=== PATIENT | male | born 1950 | race Caucasian/White ===

== ENCOUNTER → 2016-10-18 | Outpatient (CLI) | payer OTHER ==
--- NOTE | 2016-10-18 10:50 | CR ---
EXAMINATION: Left elbow HISTORY: Pain COMPARISON: None TECHNIQUE: 3 views FINDINGS/IMPRESSION: There is no acute osseous abnormality, dislocation, or fracture identified. Bon e mineralization and joint spaces appear normal. No soft tissue swelling.
== END ==
LOC: MW.CHORTHO 08:16
PROVIDERS: ATTEND Orthopaedic Surgery
DX: M25.522 Pain in left elbow (principal)
CPT/HCPCS: 73080-26-LT; 73080-LT

== ENCOUNTER 2016-11-07 07:56 | Day surgery (SDC) | payer OTHER ==
[~2016-11-07 07:56] MED LIST: Lactated Ringers 1,000 ML IV SCH; Lidocaine 2% 5 ML SDV ONE; Midazolam 1 MG/ML 2 ML SDV ONE; Ondansetron 4 MG/2 ML SDV ONE; Propofol 200 MG/20 ML SDV ONE; Rocuronium 10 MG/ML 10 ML Syringe ONE; ceFAZolin 2 GM in Premix Bag 1 BAG IV SCH; fentaNYL 250 MCG/5 ML SDV ONE
[2016-11-07] MEDS ORDERED: Acetaminophen/HYDROcodone 325-5 MG Tab PO PRN (08:00)
[2016-11-07] MEDS ORDERED: Metoprolol Succinate 25 MG Tab.ER PO ONE ×2 (09:03→09:20)
--- NOTE | 2016-11-07 09:03 | PCM.PREANE ---
Preanesthetic Assessment - Anesthesia/Transfusion/Family Hx Anesthesia History: Prior Anesthesia Without Reaction Family History of Anesthesia Reaction: No Transfusion History: No Prior Transfusion(s) - Review of Systems General: No Symptoms Pulmonary: No Symptoms Cardiovascular: No Symptoms Gastrointestinal: No symptoms Neurological: No Symptoms Other: Reports: None - Physical Assessment NPO Status Date: 11/06/16 NPO Status Time: 20:00 O2 Sat by Pulse Oximetry: 98 Respiratory Rate: 16 Vital Signs: Last Vital Signs Temp 36 C 11/07/16 08:10 Pulse 62 11/07/16 08:10 Resp 16 11/07/16 08:10 BP 125/67 11/07/16 08:10 Pulse Ox 98 11/07/16 08:10 Height: 1.78 m Weight: 95.254 kg ASA Class: 3 Mental Status: Alert & Oriented x3 Airway Class: Mallampati = 2 Dentition: Reports: Normal Dentition ROM/Head Extension: Full Lungs: Clear to auscultation Cardiovascular: Regular Rate - Allergies Allergies/Adverse Reactions: Allergies Allergy/AdvReac Type Severity Reaction Status Date / Time metronidazole [From Flagyl] Allergy Redness Verified 11/02/16 13:56 - Blood Blood Available: No - Anesthesia Plan Pre-Op Medication Ordered: Beta Hussain Beta Hussain: Metoprolol Med Last Dose Date: 11/06/16 (will redose in preop today) Med Last Dose Time: 07:00 - Acknowledgements Anesthesia Type Planned: General Anesthesia, MAC (GA or MAC --surgeon choice) Pt an Appropriate Candidate for the Planned Anesthesia: Yes Alternatives and Risks of Anesthesia Discussed w Pt/Guardian: Yes Pt/Guardian Understands and Agrees with Anesthesia Plan: Yes PreAnesthesia Questionnaire HEENT History: Reports: Other (see below) Other HEENT History: wears glasses Cardiovascular History: Reports: CAD, High cholesterol, Hypertension, Stents, Other (see below) (stents in 2007, nl stress test in Jul 2015, has continued Plavix till yest, stopped asa i wk ago. LD metopralol > 24 hr ago (will give in pre op area before surgery)) Musculoskeletal History: Reports: Osteoarthritis - Past Surgical History Head Surgeries/Procedures: Reports: None Cardiovascular Surgical History: Reports: Coronary artery stent GI Surgical History: Reports: Appendectomy, Hernia repair/other Other GI Surgeries/Procedures: hx appy and hernia repair Neurological Surgical History: Reports: Lumbar spine Other Neurological Surgeries/Procedures: hx back surgery Musculoskeletal Surgical History: Reports: Knee replacement Other Musculoskeletal Surgeries/Procedures:: hx rt knee replacement - SUBSTANCE USE Smoking Status *Q: Former Smoker Tobacco Use Within Last Twelve Months: No Recreational Drug Use History: No - HOME MEDS Home Medications: Home Meds Aspirin [[place] Aspirin] 81 mg PO DAILY 11/02/16 [History] Cholecalciferol (Vitamin D3) [Vitamin D3] 1,000 units PO DAILY 11/02/16 [History ] Clopidogrel [Plavix] 75 mg PO DAILY 11/02/16 [History] Ezetimibe [Zetia] 10 mg PO DAILY 11/02/16 [History] Metoprolol Succinate 25 mg PO DAILY 11/02/16 [History] Multivitamin/Iron/Folic Acid [Centrum Complete Multivit] 1 tab PO DAILY [History] [place]-3S/DHA/Epa/Fish Oil [[place]-3 Fish Oil 1,000 mg Sfgl] 1,000 mg PO DAILY [History] atorvaSTATin [Lipitor] 80 mg PO DAILY 11/02/16 [History] - CURRENT (IN HOUSE) MEDS Current Meds: Current Medications Acetaminophen/Hydrocodone Bitart ([place] 325-5 Mg) 1 - 2 tab PO Q4H PRN PRN Reason: Pain Lactated Ringer's (Ringers, Lactated) 1,000 mls @ 100 mls/hr IV ASDIRECTED [facility] Last Admin: 11/07/16 08:13 Dose: 100 mls/hr Cefazolin Sodium/Dextrose 2 gm (/ Premix) 50 mls @ 100 mls/hr IV ONCALL TIM Discontinued Medications Fentanyl (Sublimaze) Confirm Administered Dose 250 mcg .ROUTE .STK-MED ONE Stop: 11/07/16 07:37 Lidocaine (Xylocaine-Mpf 2%) Confirm Administered Dose 5 ml .ROUTE .STK-MED ONE Stop: 11/07/16 07:37 Midazolam HCl (Versed 1 Mg/Ml) Confirm Administered Dose 2 mg .ROUTE .STK-MED ONE Stop: 11/07/16 07:37 Ondansetron HCl (Zofran) Confirm Administered Dose 4 mg .ROUTE .STK-MED ONE Stop: 11/07/16 07:37 Propofol (Diprivan 20 Ml) Confirm Administered Dose 200 mg .ROUTE .STK-MED ONE Stop: 11/07/16 07:37 Rocuronium [place] (Zemuron) Confirm Administered Dose 100 mg .ROUTE .STK-MED ONE Stop: 11/07/16 07:37 Preanesthetic Assessment - ANESTHESIA/TRANSFUSION/FAMILY HX Family History of Anesthesia Reaction: No - PHYSICAL ASSESSMENT O2 Sat by Pulse Oximetry: 98 RR: 16 Vital Signs: Last Vital Signs Temp 36 C 11/07/16 08:10 Pulse 62 11/07/16 08:10 Resp 16 11/07/16 08:10 BP 125/67 11/07/16 08:10 Pulse Ox 98 11/07/16 08:10 Height: 1.78 m Weight: 95.254 kg - ALLERGIES Allergies/Adverse Reactions: Allergies Allergy/AdvReac Type Severity Reaction Status Date / Time metronidazole [From Flagyl] Allergy Redness Verified 11/02/16 13:56
[2016-11-07] MEDS ORDERED: Metoprolol Succinate 25 MG Tab.ER PO SCH (09:30)
[2016-11-07] MEDS ORDERED: Lidocaine 1% 50 ML MDV ONE (09:36)
[2016-11-07] MEDS ORDERED: Bupivacaine 0.25% 10 ML SDV ONE (09:36)
[2016-11-07] MEDS ORDERED: ceFAZolin 1 GM Vial ONE (09:51)
[2016-11-07] MEDS ORDERED: Sodium Chloride 0.9% 20 ML ONE (09:51)
--- NOTE | 2016-11-07 10:35 | PCM.OPNOTE ---
- General Post-Op/Procedure Note Date of Surgery/Procedure: 11/07/16 Operative Procedure(s): right ring finger A1 trevor release; left elbow lateral epicondyle cortisone injection Anesthesia Technique: MAC Primary Surgeon: Kassy Ruth Assistant Executive Housekeeper: Montse Avina Assistant Executive Housekeeper: Henok Spencer EBL in mLs: 5 Drain/Tube Comments:: Tourniquet time: 9 minutes Condition: Good
--- NOTE | 2016-11-07 10:47 | PCM.POSTAN ---
POST ANESTHESIA ASSESSMENT - MENTAL STATUS Mental Status: alert, oriented - RESPIRATORY Respiratory Status: respiratory rate WNL, airway patent, O2 saturation stable - CARDIOVASCULAR CV Status: pulse rate WNL, blood pressure stable - GASTROINTESTINAL GI Status: no symptoms - PAIN Pain Score: 0 - POST OP HYDRATION Hydration Status: adequate & stable
--- NOTE | 2016-11-07 11:15 | PCM48HPAN ---
Post Anesthesia Note - EVALUATION WITHIN 48HRS OF ANESTHETIC Vital Signs in Normal Range: Yes Patient Participated in Evaluation: Yes Respiratory Function Stable: Yes Airway Patent: Yes Cardiovascular Function Stable: Yes Hydration Status Stable: Yes Pain Control Satisfactory: Yes Nausea and Vomiting Control Satisfactory: Yes Mental Status Recovered: Yes
[2016-11-07 11:45] VITALS: BP 115/75
--- NOTE | 2016-11-07 12:56 | OR ---
SURGEON: Kassy Ruth MD DATE OF PROCEDURE: 11/07/2016 PREOPERATIVE DIAGNOSES: 1. Right ring finger trigger finger. 2. Left lateral epicondylitis. POSTOPERATIVE DIAGNOSES: 1. Right ring finger trigger finger. 2. Left lateral epicondylitis. PROCEDURES: 1. Release of right ring finger A1 trevor. 2. Injection of tendon sheath, left elbow. HOST: Montse Avina MD, PGY-2. ANESTHESIA: Local with sedation. ESTIMATED BLOOD LOSS: 5 mL. TOURNIQUET TIME: 9 minutes. COMPLICATIONS: None. DVT PROPHYLAXIS: Not indicated. IMPLANTS USED: None. BRIEF HISTORY: Michael is a 66-year-old male, who has had complaint of progressive right ring finger triggering. He has had injections in the past, which gave him good short- term relief. His triggering has recently recurred. Due to that, I did recommend surgical intervention. The risks and goals of procedure were discussed with the patient and were documented preoperatively. He agreed to proceed. He has also had problems with persistent left lateral epicondylitis. He has tried stretching and splinting which has not been helpful. I recommended a cortisone injection as well. DESCRIPTION OF PROCEDURE: The patient was properly identified and brought to the operating room. He was transferred from the OR cart and placed on the operating table in supine position. General anesthesia was administered. After adequate anesthesia was obtained, the area over the left lateral epicondyle was identified. This was prepped using ChloraPrep solution. Using sterile technique, a mixture consisting of 0.25 mL 1% lidocaine, 0.25 mL 0.25% Marcaine, and 0.5 mL Depo- Medrol (40 mg/mL) was injected into the lateral epicondyle. The patient tolerated this well. The right upper extremity was then prepped in standard fashion using ChloraPrep solution. It was then sterilely draped. The area over the A1 trevor had been identified preoperatively. This was distal to the palmar crease. I had discussed with the patient preoperatively that we would plan on making an additional incision over the palm. 1% lidocaine mixed with 0.25% Marcaine was injected along the area of anticipated incision. The tourniquet was then inflated. An incision was made superficially over the A1 trevor. The subcutaneous tissues were dissected down to the level of the tendon sheath. Retractors were used to hold the soft tissues away from the flexor tendon to protect the digital nerves. Incision was then made through the A1 trevor. The tendons were then pulled into the wound and no further catching was noted. The patient was awakened from his anesthesia and did flex and extend the finger. No further catching was noted. Wound was then copiously irrigated with saline solution. The tourniquet was deflated. The subcutaneous tissues were closed with 3-0 nylon. Xeroform gauze was placed over the wound and a bulky dressing was applied. He was awakened from his anesthetic and transferred back to the operating room cart. He was brought to recovery room in stable condition. All needle and sponge counts were correct. LÓPEZ / ELVIS /[id number]
== END 2016-11-07 11:41 | disposition home or self-care (01) ==
LOC: MW.SDS 07:56
PROVIDERS: ATTEND Orthopaedic Surgery
PROC: 0LN70ZZ Release Right Hand Tendon, Open Approach (ICD-10-PCS; principal; 2016-11-07)
PROC: 3E0U33Z Introduction of Anti-inflammatory into Joints, Percutaneous Approach (ICD-10-PCS; 2016-11-07)
DX: M65.341 Trigger finger, right ring finger (principal); M77.12 Lateral epicondylitis, left elbow; I25.10 Atherosclerotic heart disease of native coronary artery without angina pectoris; I10 Essential (primary) hypertension; E78.00 Pure hypercholesterolemia, unspecified; M19.90 Unspecified osteoarthritis, unspecified site; Z87.891 Personal history of nicotine dependence; Z79.02 Long term (current) use of antithrombotics/antiplatelets; Z79.82 Long term (current) use of aspirin; Z79.899 Other long term (current) drug therapy; Z88.1 Allergy status to other antibiotic agents; Z96.651 Presence of right artificial knee joint; Z95.5 Presence of coronary angioplasty implant and graft; Z90.49 Acquired absence of other specified parts of digestive tract; Z98.890 Other specified postprocedural states
CPT/HCPCS: 20605; 26055; J0690; J2250; J2405; J3010; J7120; 01810; J2704

== ENCOUNTER → 2016-11-29 | Outpatient (CLI) | payer OTHER ==
--- NOTE | 2016-11-30 09:27 | CR ---
EXAMINATION: AP pelvis and left hip HISTORY: Pain COMPARISON: None TECHNIQUE: AP pelvis and 2 views of the left hip FINDINGS: There is no acute osseous subglottic, dislocation, or fracture. Bone mineralization appear s normal. Mild degenerative changes noted within the hips bilaterally with preserved joint spaces. T he SI joints are symmetric. The iliopectineal lines are intact. IMPRESSION: Mild degenerative changes without acute findings.
== END ==
LOC: MW.CHORTHO 14:45
PROVIDERS: ATTEND Orthopaedic Surgery
DX: M25.552 Pain in left hip (principal)
CPT/HCPCS: 73502-26-LT; 73502-LT

== ENCOUNTER → 2016-12-08 | Outpatient (CLI) | payer OTHER ==
[~2016-12-08] MED LIST changes: +Bupivacaine 0.25% 10 ML SDV INJECT STA; +Bupivacaine 0.25% 10 ML SDV ONE; +Iopamidol 612 MG/ML 30 ML SDV IARTIC STA; +Iopamidol 612 MG/ML 30 ML SDV ONE; -Lactated Ringers 1,000 ML IV SCH; -Lidocaine 2% 5 ML SDV ONE; -Midazolam 1 MG/ML 2 ML SDV ONE; -Ondansetron 4 MG/2 ML SDV ONE; -Propofol 200 MG/20 ML SDV ONE; -Rocuronium 10 MG/ML 10 ML Syringe ONE; +Triamcinolone Acetonide 40 MG/ML 1 ML MDV INJECT STA; +Triamcinolone Acetonide 40 MG/ML 1 ML MDV ONE; -ceFAZolin 2 GM in Premix Bag 1 BAG IV SCH; -fentaNYL 250 MCG/5 ML SDV ONE
--- NOTE | 2016-12-09 11:30 | CR ---
EXAMINATION: Fluoro guided left hip injection. HISTORY: Pain FINDINGS: After written informed consent was obtained, under Fluoro guidance, using 1% lidocaine under aseptic conditions a 22-gauge spinal needle was introduced into the left hip joint. After confirmation with contrast 80 mg of Kenalog, 03 cc of Marcaine was injected into the joint. The patient tolerated the procedure well. IMPRESSION: Successful Fluoro guided left hip joint steroid injection.
== END ==
LOC: MW.DI 09:37
PROVIDERS: ATTEND Orthopaedic Surgery
DX: M25.552 Pain in left hip (principal)
CPT/HCPCS: 20610; 77002; J3301; Q9967

== ENCOUNTER 2019-12-17 08:17 | Emergency (ER) | payer MEDICARE, OTHER ==
[2019-12-17] MEDS ORDERED: Doxycycline 100 MG Cap PO ONE (08:45)
[2019-12-17 08:53] VITALS: BP 113/68; PULSE 71
--- NOTE | 2019-12-17 08:54 | EDM.PDOC ---
ED HPI GENERAL MEDICAL PROBLEM - General Chief Complaint: Bite:Animal, Insect Stated Complaint: POSSIBLE TICK IN RT EAR Time Seen by Provider: 12/17/19 08:26 Source of Information: Reports: Patient History Limitations: Reports: No Limitations - History of Present Illness INITIAL COMMENTS - FREE TEXT/NARRATIVE: Patient states that yesterday there was a tick and is here and he got half of it out. Patient concerned that a piece of the tick might still be in his ear. Patient has a history of cardiac stents and is on several medications. Denies fever chills headache or rash. Duration: Hour(s): (8), Resolved Prior to Arrival Location: Reports: Head (Ear right) Severity: Mild Improves with: Reports: None Worsens with: Reports: None Context: Reports: Activity Associated Symptoms: Reports: No Other Symptoms - Related Data Allergies Allergy/AdvReac Type Severity Reaction Status Date / Time metronidazole [From Flagyl] Allergy Redness Verified 12/17/19 08:33 Home Meds: Home Meds Cholecalciferol (Vitamin D3) [Vitamin D3] 1,000 units PO DAILY 11/02/16 [History ] Clopidogrel [Plavix] 75 mg PO DAILY 11/02/16 [History] Ezetimibe [Zetia] 10 mg PO DAILY 11/02/16 [History] Metoprolol Succinate 25 mg PO DAILY 11/02/16 [History] Multivitamin/Iron/Folic Acid [Centrum Complete Multivit] 1 tab PO DAILY [History] [place]-3S/DHA/Epa/Fish Oil [[place]-3 Fish Oil 1,000 mg Sfgl] 1,000 mg PO DAILY [History] atorvaSTATin [Lipitor] 80 mg PO DAILY 11/02/16 [History] Past Medical History HEENT History: Reports: None Other HEENT History: wears glasses Cardiovascular History: Reports: CAD, High Cholesterol, Hypertension, Stents, Other (See Below) Respiratory History: Reports: None Genitourinary History: Reports: None Musculoskeletal History: Reports: Osteoarthritis Neurological History: Reports: None Psychiatric History: Reports: None Endocrine/Metabolic History: Reports: None Hematologic History: Reports: None Immunologic History: Reports: None Oncologic (Cancer) History: Reports: None Dermatologic History: Reports: None - Infectious Disease History Infectious Disease History: Reports: Chicken Pox - Past Surgical History Head Surgeries/Procedures: Reports: None HEENT Surgical History: Reports: Oral Surgery, Tonsillectomy Cardiovascular Surgical History: Reports: Coronary Artery Stent GI Surgical History: Reports: Appendectomy, Hernia Repair/Other Neurological Surgical History: Reports: Lumbar Spine Musculoskeletal Surgical History: Reports: Knee Replacement Social & Family History - Family History Family Medical History: Noncontributory - Tobacco Use Smoking Status *Q: Former Smoker Used Tobacco, but Quit: Yes Month/Year Tobacco Last Used: 1985 - Caffeine Use Caffeine Use: Reports: Coffee, Soda, Tea - Recreational Drug Use Recreational Drug Use: No ED ROS GENERAL - Review of Systems Review Of Systems: See Below Constitutional: Reports: No Symptoms HEENT: Reports: Other (Right ear possible insect embedded in the ear. Near the outside of the ear canal) Respiratory: Reports: No Symptoms Cardiovascular: Reports: No Symptoms Endocrine: Reports: No Symptoms GI/Abdominal: Reports: No Symptoms : Reports: No Symptoms Musculoskeletal: Reports: No Symptoms Skin: Reports: No Symptoms Neurological: Reports: No Symptoms Psychiatric: Reports: No Symptoms Hematologic/Lymphatic: Reports: No Symptoms Immunologic: Reports: No Symptoms ED EXAM, ANIMAL BITE - Physical Exam Exam: See Below Exam Limited By: No Limitations General Appearance: Alert, WD/WN, No Apparent Distress Eye Exam: Bilateral Eye: Normal Fundi, Normal Inspection Ears: Other (Has a possible embedded insect head in the ear. No evidence of swelling or pain) Throat/Mouth: Normal Inspection, Normal Lips, Normal Teeth Head: Atraumatic, Normocephalic Neck: Normal Inspection, Supple, Non-Tender Respiratory/Chest: No Respiratory Distress, Lungs Clear Cardiovascular: Normal Peripheral Pulses, Regular Rate, Rhythm (Male) Exam: Deferred Rectal (Males) Exam: Deferred Back Exam: Normal Inspection Extremities: Normal Inspection Psychiatric: Normal Affect, Normal Mood Skin Exam: Normal Color, Warm/Dry ED ANIMAL BITE PROCEDURES - Additional/Other Procedure(s) Other (Free Text) Procedure(s): Removal of tick head First applied Betadine to the area II. Using sharp pickups removed insect part III. No evidence of foreign body left in the ear canal IV. Patient given doxycycline 200 mg for prophylaxis one-time dose Course - Vital Signs Text/Narrative:: And apparently got bit by a tick on Monday and squished it last night. Patient came in because of he might of left a piece of the tick in his ear. Tick was removed. Patient will be placed on antibiotics. Last Recorded V/S: Last Vital Signs Temp 96.4 F L 12/17/19 08:27 Pulse 71 12/17/19 08:51 Resp 16 12/17/19 08:51 BP 113/68 12/17/19 08:51 Pulse Ox 97 12/17/19 08:51 - Orders/Labs/Meds Meds: Medications Discontinued Medications Generic Name Dose Route Start Last Admin Trade Name Mayuri PRN Reason Stop Dose Admin Doxycycline Hyclate 200 mg 12/17/19 08:45 12/17/19 08:51 Vibramycin PO 12/17/19 08:46 200 mg ONETIME ONE Administration Departure - Departure Time of Disposition: 08:59 Disposition: Home, Self-Care 01 Condition: Good Clinical Impression: Tick bite of ear Qualifiers: Encounter type: initial encounter Laterality: right Qualified Code(s): S00.461A - Insect bite (nonvenomous) of right ear, initial encounter; W57.XXXA - Bitten or stung by nonvenomous insect and other nonvenomous arthropods, initial encounter - Discharge Information Instructions: Tick Bite Information, Adult, [id number] Referrals: Cooper Gregory [Ordering Only Provider] - Michael Becker MD [Primary Care Provider] - Forms: ED Department Discharge Additional Instructions: The following information is given to patients seen in the emergency department who are being discharged to home. This information is to outline your options for follow-up care. We provide all patients seen in our emergency department with a follow-up referral. The need for follow-up, as well as the timing and circumstances, are variable depending upon the specifics of your emergency department visit. If you don't have a primary care physician on staff, we will provide you with a referral. We always advise you to contact your personal physician following an emergency department visit to inform them of the circumstance of the visit and for follow-up with them and/or the need for any referrals to a consulting specialist. The emergency department will also refer you to a specialist when appropriate. This referral assures that you have the opportunity for follow-up care with a specialist. All of these measure are taken in an effort to provide you with optimal care, which includes your follow-up. Under all circumstances we always encourage you to contact your private physician who remains a resource for coordinating your care. When calling for follow-up care, please make the office aware that this follow-up is from your recent emergency room visit. If for any reason you are refused follow-up, please contact the [facility] Emergency Department at and asked to speak to the emergency department charge nurse. [facility] [address] [place] [address] [facility] [address] [place] [id number] Sepsis Event Note - Evaluation Sepsis Screening Result: No Definite Risk - Focused Exam Vital Signs: Vital Signs Temp Pulse Resp BP Pulse Ox 12/17/19 08:51 71 16 113/68 97 12/17/19 08:27 96.4 F L 69 16 127/72 94 L Date Exam was Performed: 12/17/19 Time Exam was Performed: 08:59
== END 2019-12-17 09:05 | disposition home or self-care (01) ==
LOC: MW.ED 08:17
DX: S00.461A Insect bite (nonvenomous) of right ear, initial encounter (principal); I25.10 Atherosclerotic heart disease of native coronary artery without angina pectoris; E78.00 Pure hypercholesterolemia, unspecified; I10 Essential (primary) hypertension; Z88.8 Allergy status to other drugs, medicaments and biological substances; Z79.899 Other long term (current) drug therapy; Z90.49 Acquired absence of other specified parts of digestive tract; Z87.891 Personal history of nicotine dependence; Z79.02 Long term (current) use of antithrombotics/antiplatelets; W57.XXXA Bitten or stung by nonvenomous insect and other nonvenomous arthropods, initial encounter
CPT/HCPCS: 69200; 99282; A9270

== ENCOUNTER 2020-02-07 19:37 | Emergency (ER) | payer MEDICARE, OTHER ==
[2020-02-07] MEDS ORDERED: Ondansetron 4 MG/2 ML SDV IVPUSH ONE (19:59)
[2020-02-07] MEDS ORDERED: Sodium Chloride 0.9% 1,000 ML IV ONE (19:59)
--- NOTE | 2020-02-07 20:06 | EDM.PDOC ---
ED HPI GENERAL MEDICAL PROBLEM - General Chief Complaint: Genitourinary Problem Stated Complaint: KIDNEY STONES Time Seen by Provider: 02/07/20 19:50 Source of Information: Reports: Patient History Limitations: Reports: No Limitations - History of Present Illness INITIAL COMMENTS - FREE TEXT/NARRATIVE: HISTORY AND PHYSICAL: History of present illness: Patient is a 69-year-old male who presents to the emergency room with complaints of right flank pain for the past 2 days. He states yesterday the pain was only notable for about 1 hour and then did resolve on its own. Today while out playing golf he states the pain returned and was more severe. He stopped physical activity but he continues to have the sharp pain that slightly wraps around to the front of his abdomen. He has been nauseated without any vomiting. Patient denies any fever, chills, headache, change in vision, syncope or near syncope. Denies any chest pain, back pain, shortness of breath or cough. Denies any testicular pain/redness/swelling, diarrhea, constipation or dysuria. Has not noted any blood in urine or stool. Patient has been eating and drinking appropriately. No previous history of kidney stone. Review of systems: As per history of present illness and below otherwise all systems reviewed and negative. Past medical history: As per history of present illness and as reviewed below otherwise noncontributory. Surgical history: As per history of present illness and as reviewed below otherwise noncontributory. Social history: See social history for further information Family history: As per history of present illness and as reviewed below otherwise noncontributory. Physical exam: General: Well-developed and well-nourished 69-year-old male. Alert and oriented. Nontoxic-appearing and in no acute distress. HEENT: Atraumatic, normocephalic, pupils equal and reactive bilaterally, negative for conjunctival pallor or scleral icterus, mucous membranes moist, TMs normal bilaterally, throat clear, neck supple, nontender, trachea midline. No drooling or trismus noted. No meningeal signs. No hot potato voice noted. Lungs: Clear to auscultation, breath sounds equal bilaterally, chest nontender. Heart: S1S2, regular rate and rhythm without overt murmur Abdomen: Soft, nondistended, nontender. Negative for masses or hepatosplenomegaly. Right sided costovertebral tenderness. Pelvis: Stable nontender. Skin: Intact, warm, dry. No lesions or rashes noted. Extremities: Atraumatic, moves all extremities per self without difficulty or deficits, negative for cords or calf pain. Neurovascular unremarkable. Neuro: Awake, alert, oriented. Cranial nerves II through XII unremarkable. Cerebellum unremarkable. Motor and sensory unremarkable throughout. Exam nonfocal. Notes: CT shows a 6.9 mm obstructing stone within the distal right ureter at the UVJ. A mild aneurysmal dilatation of the distal aorta measuring 2.8cm AP dimension. I did talk with Dr. Taylor, urologist on-call about this patient. He states that he will see him on Monday at 1 PM. All information was shared with the patient. We discussed home medication and the importance of follow-up. Supportive care measures were reviewed and discussed. Voices understanding and is agreeable to plan of care. Denies any further questions or concerns at this time. Diagnostics: CBC, CMP, UA, CT abdomen and pelvis without Therapeutics: IV fluid, Zofran, Flomax Prescription: [place], Flomax Impression: Kidney Stone, right Plan: 1. You have a 6.9 mm kidney stone in your right ureter. I did talk with Dr. Taylor, our urologist about your kidney stone. He would like you to increase your fluids over the weekend. Take the prescribed medications as directed. If at some point you have difficulty passing urine, your pain is unmanageable, he develop fever/chills or severe abdominal pain you are more than welcome to return to the emergency room for reevaluation. Otherwise you do have an appointment on Monday at 1 PM at his office. 2. You can alternate Tylenol and ibuprofen as needed for pain. [place] is a narcotic, you can take this for moderate to severe pain. Please be aware that this medication may cause drowsiness so do not take it while driving or needing to be functioning outside of the house. Definitive disposition and diagnosis as appropriate pending reevaluation and review of above. Right Flank Pain Score (Numeric/FACES): 8 - Related Data Allergies Allergy/AdvReac Type Severity Reaction Status Date / Time metronidazole [From Flagyl] Allergy Redness Verified 02/07/20 19:57 Home Meds: Home Meds Cholecalciferol (Vitamin D3) [Vitamin D3] 1,000 units PO DAILY 11/02/16 [History] Clopidogrel [Plavix] 75 mg PO DAILY 11/02/16 [History] Ezetimibe [Zetia] 10 mg PO DAILY 11/02/16 [History] Metoprolol Succinate 25 mg PO DAILY 11/02/16 [History] Multivitamin/Iron/Folic Acid [Centrum Complete Multivit] 1 tab PO DAILY 11/02/16 [History] [place]-3S/DHA/Epa/Fish Oil [[place]-3 Fish Oil 1,000 mg Sfgl] 1,000 mg PO DAILY 11/02/16 [History] atorvaSTATin [Lipitor] 80 mg PO DAILY 11/02/16 [History] Past Medical History HEENT History: Reports: None Other HEENT History: wears glasses Cardiovascular History: Reports: CAD, High Cholesterol, Hypertension, Stents, Other (See Below) Respiratory History: Reports: None Genitourinary History: Reports: None Musculoskeletal History: Reports: Osteoarthritis Neurological History: Reports: None Psychiatric History: Reports: None Endocrine/Metabolic History: Reports: None Hematologic History: Reports: None Immunologic History: Reports: None Oncologic (Cancer) History: Reports: None Dermatologic History: Reports: None - Infectious Disease History Infectious Disease History: Reports: Chicken Pox - Past Surgical History Head Surgeries/Procedures: Reports: None HEENT Surgical History: Reports: Oral Surgery, Tonsillectomy Cardiovascular Surgical History: Reports: Coronary Artery Stent GI Surgical History: Reports: Appendectomy, Hernia Repair/Other Neurological Surgical History: Reports: Lumbar Spine Musculoskeletal Surgical History: Reports: Knee Replacement Social & Family History - Family History Family Medical History: Noncontributory - Tobacco Use Smoking Status *Q: Never Smoker Second Hand Smoke Exposure: No - Caffeine Use Caffeine Use: Reports: None - Recreational Drug Use Recreational Drug Use: No ED ROS GENERAL - Review of Systems Review Of Systems: Comprehensive ROS is negative, except as noted in HPI. ED EXAM, RENAL/ - Physical Exam Exam: See Below (See dictation) Course - Vital Signs Last Recorded V/S: Last Vital Signs Temp 97.6 F 02/07/20 19:55 Pulse 53 L 02/07/20 20:51 Resp 16 02/07/20 20:51 BP 138/89 02/07/20 20:51 Pulse Ox 96 02/07/20 20:51 - Orders/Labs/Meds Labs: Laboratory Tests 02/07/20 02/07/20 02/07/20 Range/Units 20:12 20:12 20:55 WBC 8.32 (4.0-11.0) K/uL RBC 4.37 L (4.50-5.90) M/uL Hgb 13.8 (13.0-17.0) g/dL Hct 41.3 (38.0-50.0) % MCV 94.5 (80.0-98.0) fL MCH 31.6 (27.0-32.0) pg MCHC 33.4 (31.0-37.0) g/dL RDW Std Deviation 46.8 (28.0-62.0) fl RDW Coeff of Mahsa 14 (11.0-15.0) % Plt Count 235 (150-400) K/uL MPV 9.00 (7.40-12.00) fL Neut % (Auto) 59.8 (48.0-80.0) % Lymph % (Auto) 30.0 (16.0-40.0) % Buchanan % (Auto) 7.8 (0.0-15.0) % Eos % (Auto) 2.2 (0.0-7.0) % Baso % (Auto) 0.2 (0.0-1.5) % Neut # (Auto) 5.0 (1.4-5.7) K/uL Lymph # (Auto) 2.5 H (0.6-2.4) K/uL Buchanan # (Auto) 0.7 (0.0-0.8) K/uL Eos # (Auto) 0.2 (0.0-0.7) K/uL Baso # (Auto) 0.0 (0.0-0.1) K/uL Nucleated RBC % 0.0 /100WBC Nucleated RBCs # 0 K/uL Sodium 143 (136-148) mmol/L Potassium 4.2 (3.5-5.1) mmol/L Chloride 107 (98-107) mmol/L Carbon Dioxide 27.0 (21.0-32.0) mmol/L BUN 30 H (7.0-18.0) mg/dL Creatinine 1.2 (0.8-1.3) mg/dL Est Cr Clr Drug Dosing 61.68 mL/min Estimated GFR (MDRD) > 60.0 ml/min Glucose 119 H (74-106) mg/dL Calcium 8.4 L (8.5-10.1) mg/dL Total Bilirubin 0.6 (0.2-1.0) mg/dL AST 23 (15-37) IU/L ALT 43 (14-63) IU/L Alkaline Phosphatase 78 (46-116) U/L Total Protein 6.9 (6.4-8.2) g/dL Albumin 3.9 (3.4-5.0) g/dL Globulin 3.0 (2.6-4.0) g/dL Albumin/Globulin Ratio 1.3 (0.9-1.6) Urine Color YELLOW Urine Appearance CLEAR Urine pH 5.5 (5.0-8.0) Ur Specific Wh[place] >= 1.030 (1.001-1.035) Urine Protein NEGATIVE (NEGATIVE) mg/dL Urine Glucose (UA) NEGATIVE (NEGATIVE) mg/dL Urine Ketones NEGATIVE (NEGATIVE) mg/dL Urine Occult Blood TRACE-INTACT H (NEGATIVE) Urine Nitrite NEGATIVE (NEGATIVE) Urine Bilirubin NEGATIVE (NEGATIVE) Urine Urobilinogen 0.2 (<2.0) EU/dL Ur Leukocyte Esterase NEGATIVE (NEGATIVE) Urine RBC 2-3 (0-2/HPF) Urine WBC 0-1 (0-5/HPF) Ur Epithelial Cells NOT SEEN (NONE-FEW) Amorphous Sediment RARE (NEGATIVE) Urine Bacteria RARE (NEGATIVE) Urine Mucus RARE (NONE-MOD) Meds: Medications Discontinued Medications Generic Name Dose Route Start Last Admin Trade Name Freq PRN Reason Stop Dose Admin Hydrocodone Bitart/Acetaminophen 1 tab 02/07/20 21:16 [place] 325-5 Mg PO 02/07/20 21:17 ONETIME ONE Sodium Chloride 1,000 mls @ 999 mls/hr 02/07/20 19:59 02/07/20 20:19 Normal Saline IV 02/07/20 20:59 999 mls/hr STAT ONE Administration Ondansetron HCl 4 mg 02/07/20 19:59 02/07/20 20:19 Zofran IVPUSH 02/07/20 20:00 4 mg ONETIME ONE Administration Tamsulosin HCl 0.4 mg 02/07/20 21:04 Flomax PO 02/07/20 21:05 ONETIME ONE Departure - Departure Time of Disposition: 21:19 Disposition: Home, Self-Care 01 Clinical Impression: Kidney stone - Discharge Information Instructions: Kidney Stones, [id number] Referrals: Michael Becker MD [Primary Care Provider] - Forms: ED Department Discharge Additional Instructions: The following information is given to patients seen in the emergency department who are being discharged to home. This information is to outline your options for follow-up care. We provide all patients seen in our emergency department with a follow-up referral. The need for follow-up, as well as the timing and circumstances, are variable depending upon the specifics of your emergency department visit. If you don't have a primary care physician on staff, we will provide you with a referral. We always advise you to contact your personal physician following an emergency department visit to inform them of the circumstance of the visit and for follow-up with them and/or the need for any referrals to a consulting specialist. The emergency department will also refer you to a specialist when appropriate. This referral assures that you have the opportunity for follow-up care with a specialist. All of these measure are taken in an effort to provide you with optimal care, which includes your follow-up. Under all circumstances we always encourage you to contact your private physician who remains a resource for coordinating your care. When calling for follow-up care, please make the office aware that this follow-up is from your recent emergency room visit. If for any reason you are refused follow-up, please contact the [facility] Emergency Department at and asked to speak to the emergency department charge nurse. [facility] Specialty [facility] - Urology (Dr Taylor) [address] [place] [id number] 1. You have a 6.9 mm kidney stone in your right ureter. I did talk with Dr. Taylor, our urologist about your kidney stone. He would like you to increase your fluids over the weekend. Take the prescribed medications as directed. If at some point you have difficulty passing urine, your pain is unmanageable, he develop fever/chills or severe abdominal pain you are more than welcome to return to the emergency room for reevaluation. Otherwise you do have an appointment on Monday at 1 PM at his office. 2. You can alternate Tylenol and ibuprofen as needed for pain. [place] is a narcotic, you can take this for moderate to severe pain. Please be aware that this medication may cause drowsiness so do not take it while driving or needing to be functioning outside of the house. Sepsis Event Note (ED) - Evaluation Sepsis Screening Result: No Definite Risk - Focused Exam Vital Signs: Vital Signs Temp Pulse Resp BP Pulse Ox 02/07/20 20:51 53 L 16 138/89 96 02/07/20 19:55 97.6 F 76 18 150/70 H 98
[2020-02-07 20:43] LABS: BLOOD UREA NITROGEN,BUN 30 mg/dL (7.0-18.0); CHLORIDE,CL 107 mmol/L (98-107); GLUCOSE RANDOM 119 mg/dL (74-106); POTASSIUM,K 4.2 mmol/L (3.5-5.1); SODIUM,NA 143 mmol/L (136-148)
--- NOTE | 2020-02-07 20:49 | CT ---
CT abdomen and pelvis Technique: Multiple axial sections were obtained from above the dome of the diaphragm inferiorly through the pubic symphysis. Intravenous and oral contrast not utilized. Comparison: No prior abdominal imaging is available. Findings: Right ureter is prominent in size. This finding is caused by an obstructing distal right ureteral stone measuring about 6.9 mm. This stone is located at the UVJ. No other ureteral calculi are seen. No renal calculi are seen. Other findings: Visualized lung bases show nothing acute. Liver contains no focal parenchymal abnormality. Spleen appears within normal limits. Adrenal glands show no nodule. Pancreas is within normal limits. Gallbladder contains no calcified gallstones. Aorta shows atherosclerotic change. Distal abdominal aorta shows mild aneurysmal dilatation with AP dimension of 2.8 cm. Atherosclerotic calcification continues into the iliac vessels. No pelvic mass or adenopathy is seen. Small fat-containing left inguinal hernia is noted. No free fluid is seen. No inflammatory changes seen. Appendix not visualized with certainty. Bone window settings were reviewed. Mild scattered degenerative change seen within the spine. No acute osseous finding is appreciated. Impression: 1. 6.9 mm obstructing stone within the distal right ureter at the UVJ. 2. Mild aneurysmal dilatation of the distal aorta measuring 2.8 cm in AP dimension. 3. Other findings believed to be nonacute as described above. Diagnostic code #3 Study was dictated in MDT
[2020-02-07] MEDS ORDERED: Tamsulosin 0.4 MG Cap.ER PO ONE (21:04)
[2020-02-07] MEDS ORDERED: Acetaminophen/HYDROcodone 325-5 MG Tab PO ONE (21:16)
[2020-02-08 06:51] VITALS: BP 146/73; PULSE 56
== END 2020-02-07 20:58 | disposition home or self-care (01) ==
LOC: MW.ED 19:37
DX: N20.2 Calculus of kidney with calculus of ureter (principal); I25.10 Atherosclerotic heart disease of native coronary artery without angina pectoris; E78.00 Pure hypercholesterolemia, unspecified; I10 Essential (primary) hypertension; Z95.5 Presence of coronary angioplasty implant and graft; Z79.02 Long term (current) use of antithrombotics/antiplatelets; Z79.899 Other long term (current) drug therapy; Z88.8 Allergy status to other drugs, medicaments and biological substances
CPT/HCPCS: 36415; 74176; 80053; 81001; 85025; 96374; 99284; J2405; J7030; 99283

== ENCOUNTER 2021-11-22 04:31 | Emergency (ER) | payer MEDICARE, OTHER ==
[2021-11-22 06:15] LABS: BLOOD UREA NITROGEN,BUN 28 mg/dL (7.0-18.0); CARBON DIOXIDE,CO2 28.6 mmol/L (21.0-32.0); CHLORIDE,CL 104 mmol/L (98-107); GLUCOSE RANDOM 109 mg/dL (74-106); POTASSIUM,K 3.7 mmol/L (3.5-5.1); SODIUM,NA 140 mmol/L (136-148)
[2021-11-22] MEDS ORDERED: Ondansetron 4 MG/2 ML SDV IVPUSH STA (06:26)
[2021-11-22] MEDS ORDERED: Ketorolac 30 MG/ML SDV IVPUSH STA (06:26)
[2021-11-22] MEDS ORDERED: Tamsulosin 0.4 MG Cap.ER PO STA (06:27)
[2021-11-22 07:20] VITALS: BP 126/69; PULSE 57
== END 2021-11-22 07:00 | disposition home or self-care (01) ==
LOC: MW.ED 04:31
DX: N13.2 Hydronephrosis with renal and ureteral calculous obstruction (principal); N23 Unspecified renal colic; I25.10 Atherosclerotic heart disease of native coronary artery without angina pectoris; E78.00 Pure hypercholesterolemia, unspecified; I10 Essential (primary) hypertension; M19.90 Unspecified osteoarthritis, unspecified site; Z88.1 Allergy status to other antibiotic agents; Z79.899 Other long term (current) drug therapy; Z90.49 Acquired absence of other specified parts of digestive tract
CPT/HCPCS: 36415; 74176; 80048; 81001; 85025; 96374; 96375; 99284; A9270; J1885; J2405; 99282

== ENCOUNTER 2023-07-11 12:33 | Day surgery (SDC) | payer MEDICARE, OTHER ==
[~2023-07-11 12:33] MED LIST changes: +Albuterol 0.083% 2.5 MG/3 ML Neb Soln NEB PRN; -Bupivacaine 0.25% 10 ML SDV INJECT STA; -Bupivacaine 0.25% 10 ML SDV ONE; +HYDROmorphone 1 MG/ML Syringe IVPUSH PRN; -Iopamidol 612 MG/ML 30 ML SDV IARTIC STA; -Iopamidol 612 MG/ML 30 ML SDV ONE; +Lactated Ringers 1,000 ML IV SCH; +Metoclopramide 10 MG/2 ML SDV IVPUSH PRN; +Morphine 2 MG/ML SYRINGE IVPUSH PRN; +Naloxone 0.4 MG/ML SDV IVPUSH PRN; +Ondansetron 4 MG/2 ML SDV IVPUSH PRN; -Triamcinolone Acetonide 40 MG/ML 1 ML MDV INJECT STA; -Triamcinolone Acetonide 40 MG/ML 1 ML MDV ONE; +droPERidol 5 MG/2 ML SDV IVPUSH PRN; +fentaNYL 50 MCG/ML SDV IVPUSH PRN
[2023-07-11] MEDS ORDERED: Bupivacaine 0.25% 30 ML SDV ONE (12:43)
[2023-07-11] MEDS ORDERED: Midazolam 1 MG/ML 2 ML SDV ONE (12:50)
[2023-07-11] MEDS ORDERED: Lidocaine 2% 5 ML SDV ONE ×2 (13:27→13:30)
[2023-07-11] MEDS ORDERED: Dexmedetomidine 200 MCG/2 ML SDV ONE (13:27)
[2023-07-11] MEDS ORDERED: ceFAZolin 2 GM Vial ONE (13:28)
[2023-07-11] MEDS ORDERED: Propofol 200 MG/20 ML SDV ONE (13:30)
[2023-07-11] MEDS ORDERED: ceFAZolin 2 GM in Sodium Chloride 0.9% 50 ML IV ONE (14:00)
[2023-07-11 14:21] VITALS: BP 105/65; PULSE 50
== END 2023-07-11 14:25 | disposition home or self-care (01) ==
LOC: MW.SDS 12:33
PROVIDERS: ATTEND Orthopaedic Surgery
DX: M65.331 Trigger finger, right middle finger (principal); I10 Essential (primary) hypertension; I25.10 Atherosclerotic heart disease of native coronary artery without angina pectoris; E78.00 Pure hypercholesterolemia, unspecified; Z87.891 Personal history of nicotine dependence; Z95.5 Presence of coronary angioplasty implant and graft; Z79.02 Long term (current) use of antithrombotics/antiplatelets; Z79.899 Other long term (current) drug therapy
CPT/HCPCS: 26055; J0690; J2250; J2704; J3490; J7120

== ENCOUNTER 2023-07-21 10:48 | Inpatient (IN) | payer MEDICARE, OTHER ==
[2023-07-21] MEDS ORDERED: Lactated Ringers 1,000 ML IV SCH (11:30)
[2023-07-21] MEDS ORDERED: Metoclopramide 10 MG/2 ML SDV IVPUSH PRN (12:25)
[2023-07-21] MEDS ORDERED: Ondansetron 4 MG/2 ML SDV IVPUSH PRN ×2 (12:25→16:28)
[2023-07-21] MEDS ORDERED: HYDROmorphone 1 MG/ML Syringe IVPUSH PRN (12:25)
[2023-07-21] MEDS ORDERED: fentaNYL 50 MCG/ML SDV IVPUSH PRN (12:25)
[2023-07-21] MEDS ORDERED: droPERidol 5 MG/2 ML SDV IVPUSH PRN (12:25)
[2023-07-21] MEDS ORDERED: Albuterol 0.083% 2.5 MG/3 ML Neb Soln NEB PRN (12:25)
[2023-07-21] MEDS ORDERED: Morphine 2 MG/ML SYRINGE IVPUSH PRN ×2 (12:25→16:42)
[2023-07-21] MEDS ORDERED: Naloxone 0.4 MG/ML SDV IVPUSH PRN ×2 (12:25→16:42)
[2023-07-21 12:35] LABS: BASOPHILS ABSOLUTE AUTO 0.03 K/uL (0.00-0.20); BASOPHILS PERCENT AUTO 0.3 % (0.0-1.0); EOSINOPHILS ABSOLUTE AUTO 0.16 K/uL (0.00-0.45); EOSINOPHILS PERCENT AUTO 1.8 % (0.0-6.0); HEMATOCRIT 36.1 % (42.0-52.0); HEMOGLOBIN 12.7 g/dL (14.0-18.0); IMMATURE GRAN ABSOLUTE AUTO 0.02 K/uL (0.00-0.05); IMMATURE GRAN PERCENT AUTO 0.2 % (0.0-0.4); LYMPHOCYTES ABSOLUTE AUTO 1.87 K/uL (1.00-4.80); LYMPHOCYTES PERCENT AUTO 20.6 % (24.0-44.0); MEAN CORPUSCULAR HEMOGLOBIN 31.9 pg (28.0-32.0); MEAN CORPUSCULAR HGB CONC 35.2 g/dL (32.0-36.0); MEAN CORPUSCULAR VOLUME 90.7 fL (83.0-99.0); NEUTROPHILS ABSOLUTE AUTO 5.99 K/uL (1.80-7.70); NEUTROPHILS PERCENT AUTO 66.1 % (41.0-71.0); PLATELET COUNT,PLT 211 K/uL (150-400); RED BLOOD CELL COUNT 3.98 M/uL (4.52-5.90); WHITE BLOOD CELL COUNT,WBC 9.07 K/uL (3.9-11.3)
[2023-07-21 12:36] LABS: C-REACTIVE PROTEIN 5.63 mg/dL (<0.3); CALCIUM 8.5 mg/dL (8.5-10.1); CARBON DIOXIDE,CO2 28.6 mmol/L (21.0-32.0); CREATININE 0.9 mg/dL (0.8-1.3); EST CRCL DRUG DOSING (CG) 78.86 mL/min; POTASSIUM,K 3.9 mmol/L (3.5-5.1)
[2023-07-21] MEDS ORDERED: Bupivacaine 0.5% 30 ML SDV ONE (13:19)
[2023-07-21] MEDS ORDERED: propofoL 50 ML ONE (13:21)
[2023-07-21] MEDS ORDERED: fentaNYL 100 MCG/2 ML SDV ONE (13:22)
[2023-07-21] MEDS ORDERED: Propofol 200 MG/20 ML SDV ONE (13:24)
[2023-07-21] MEDS ORDERED: dexmedeTOMIDine HCl 200 MCG/2 ML SDV ONE (13:25)
[2023-07-21] MEDS ORDERED: Water For Injection, Sterile 20 ML ONE (13:25)
[2023-07-21] MEDS ORDERED: Lidocaine 2% 5 ML SDV ONE (13:27)
[2023-07-21] MEDS ORDERED: Piperacillin/Tazobactam 3.375 GM in Sodium Chloride 0.9% 100 ML IV SCH (13:30)
[2023-07-21] MEDS ORDERED: VANCOmycin 2 GM/400 ML 2 GM in Premix Bag 1 BAG IV SCH (14:00)
[2023-07-21] MEDS ORDERED: oxyCODONE 5 MG Tab PO PRN (14:27)
[2023-07-21] MEDS ORDERED: Polyethylene Glycol 3350 Powder 17 GM Packet PO PRN (16:28)
[2023-07-21] MEDS ORDERED: Docusate Sodium 100 MG Cap PO PRN (16:28)
[2023-07-21] MEDS: Acetaminophen 325 MG Tab PO SCH ×2 (18:04→20:00)
[2023-07-21] MEDS ORDERED: Sodium Chloride 0.9% 1,000 ML IV ONE (18:13)
[2023-07-21] MEDS: Piperacillin/Tazobactam 3.375 GM in Sodium Chloride 0.9% 100 ML IV SCH (19:59)
[2023-07-22] MEDS: Acetaminophen 325 MG Tab PO SCH ×5 (00:35→17:02)
[2023-07-22] MEDS: Piperacillin/Tazobactam 3.375 GM in Sodium Chloride 0.9% 100 ML IV SCH ×4 (02:27→20:30)
[2023-07-22 06:14] LABS: BASOPHILS ABSOLUTE AUTO 0.02 K/uL (0.00-0.20); BASOPHILS PERCENT AUTO 0.3 % (0.0-1.0); EOSINOPHILS ABSOLUTE AUTO 0.24 K/uL (0.00-0.45); EOSINOPHILS PERCENT AUTO 3.2 % (0.0-6.0); HEMATOCRIT 34.8 % (42.0-52.0); IMMATURE GRAN ABSOLUTE AUTO 0.01 K/uL (0.00-0.05); IMMATURE GRAN PERCENT AUTO 0.1 % (0.0-0.4); LYMPHOCYTES ABSOLUTE AUTO 1.78 K/uL (1.00-4.80); MEAN CORPUSCULAR HEMOGLOBIN 31.5 pg (28.0-32.0); MEAN CORPUSCULAR HGB CONC 34.5 g/dL (32.0-36.0); MEAN CORPUSCULAR VOLUME 91.3 fL (83.0-99.0); MEAN PLATELET VOLUME 8.9 fL (9.4-12.4); MONOCYTES ABSOLUTE AUTO 0.64 K/uL (0.00-0.80); MONOCYTES PERCENT AUTO 8.6 % (0.0-8.0); NEUTROPHILS ABSOLUTE AUTO 4.73 K/uL (1.80-7.70); NEUTROPHILS PERCENT AUTO 63.8 % (41.0-71.0); PLATELET COUNT,PLT 193 K/uL (150-400); RED BLOOD CELL COUNT 3.81 M/uL (4.52-5.90); WHITE BLOOD CELL COUNT,WBC 7.42 K/uL (3.9-11.3)
[2023-07-22 07:07] LABS: CALCIUM 8.4 mg/dL (8.5-10.1); CARBON DIOXIDE,CO2 25.3 mmol/L (21.0-32.0); EST CRCL DRUG DOSING (CG) 70.97 mL/min; MAGNESIUM 2.3 mg/dL (1.8-2.4); POTASSIUM,K 3.9 mmol/L (3.5-5.1)
[2023-07-22] MEDS: atorvaSTATin 40 MG Tab PO SCH (08:58)
[2023-07-22] MEDS: Clopidogrel 75 MG Tab PO SCH (08:58)
[2023-07-22] MEDS: Multivitamin Tab PO SCH (08:58)
[2023-07-22] MEDS: Ezetimibe 10 MG Tab PO SCH (08:59)
[2023-07-22] MEDS: Fish Oil/Omega-3 Fatty Acids 1 Gm Cap PO SCH (08:59)
[2023-07-22] MEDS ORDERED: Lisinopril 5 MG Tab PO SCH (09:00)
[2023-07-22] MEDS ORDERED: propofoL 50 ML ONE (19:47)
[2023-07-22] MEDS ORDERED: fentaNYL 250 MCG/5 ML SDV ONE (19:47)
[2023-07-22] MEDS ORDERED: fentaNYL 100 MCG/2 ML SDV ONE (20:42)
[2023-07-22] MEDS ORDERED: HYDROmorphone 2 MG/ML Syringe ONE (21:13)
[2023-07-23] MEDS: Acetaminophen 325 MG Tab PO SCH ×7 (00:32→20:13)
[2023-07-23] MEDS ORDERED: Sodium Chloride 0.45% 1,000 ML IV SCH (01:00)
[2023-07-23] MEDS: Piperacillin/Tazobactam 3.375 GM in Sodium Chloride 0.9% 100 ML IV SCH ×4 (02:34→20:14)
[2023-07-23 06:51] LABS: BASOPHILS ABSOLUTE AUTO 0.02 K/uL (0.00-0.20); BASOPHILS PERCENT AUTO 0.3 % (0.0-1.0); EOSINOPHILS ABSOLUTE AUTO 0.13 K/uL (0.00-0.45); EOSINOPHILS PERCENT AUTO 1.7 % (0.0-6.0); HEMATOCRIT 32.5 % (42.0-52.0); HEMOGLOBIN 11.4 g/dL (14.0-18.0); IMMATURE GRAN ABSOLUTE AUTO 0.03 K/uL (0.00-0.05); IMMATURE GRAN PERCENT AUTO 0.4 % (0.0-0.4); LYMPHOCYTES PERCENT AUTO 19.8 % (24.0-44.0); MEAN CORPUSCULAR HGB CONC 35.1 g/dL (32.0-36.0); MEAN CORPUSCULAR VOLUME 91.3 fL (83.0-99.0); MONOCYTES ABSOLUTE AUTO 0.61 K/uL (0.00-0.80); MONOCYTES PERCENT AUTO 8.1 % (0.0-8.0); NEUTROPHILS ABSOLUTE AUTO 5.27 K/uL (1.80-7.70); NEUTROPHILS PERCENT AUTO 69.7 % (41.0-71.0); PLATELET COUNT,PLT 202 K/uL (150-400); RED BLOOD CELL COUNT 3.56 M/uL (4.52-5.90); WHITE BLOOD CELL COUNT,WBC 7.56 K/uL (3.9-11.3)
[2023-07-23 07:31] LABS: CALCIUM 8.3 mg/dL (8.5-10.1); CARBON DIOXIDE,CO2 28.3 mmol/L (21.0-32.0); EST CRCL DRUG DOSING (CG) 70.97 mL/min; POTASSIUM,K 3.9 mmol/L (3.5-5.1)
[2023-07-23] MEDS: Multivitamin Tab PO SCH (09:05)
[2023-07-23] MEDS: Ezetimibe 10 MG Tab PO SCH (09:05)
[2023-07-23] MEDS: Clopidogrel 75 MG Tab PO SCH (09:05)
[2023-07-23] MEDS: atorvaSTATin 40 MG Tab PO SCH (09:05)
[2023-07-23] MEDS: Fish Oil/Omega-3 Fatty Acids 1 Gm Cap PO SCH (09:05)
[2023-07-23] MEDS: Enoxaparin 40 MG/0.4 ML Syringe SUBCUT SCH (09:57)
[2023-07-23] MEDS: Lisinopril 5 MG Tab PO SCH (16:56)
[2023-07-24] MEDS: Acetaminophen 325 MG Tab PO SCH ×3 (02:19→08:25)
[2023-07-24] MEDS: Piperacillin/Tazobactam 3.375 GM in Sodium Chloride 0.9% 100 ML IV SCH ×2 (04:17→08:23)
[2023-07-24 06:40] LABS: BASOPHILS ABSOLUTE AUTO 0.03 K/uL (0.00-0.20); BASOPHILS PERCENT AUTO 0.5 % (0.0-1.0); EOSINOPHILS ABSOLUTE AUTO 0.39 K/uL (0.00-0.45); EOSINOPHILS PERCENT AUTO 6.5 % (0.0-6.0); HEMATOCRIT 34.7 % (42.0-52.0); HEMOGLOBIN 11.9 g/dL (14.0-18.0); IMMATURE GRAN ABSOLUTE AUTO 0.01 K/uL (0.00-0.05); IMMATURE GRAN PERCENT AUTO 0.2 % (0.0-0.4); LYMPHOCYTES ABSOLUTE AUTO 1.88 K/uL (1.00-4.80); LYMPHOCYTES PERCENT AUTO 31.3 % (24.0-44.0); MEAN CORPUSCULAR HEMOGLOBIN 31.2 pg (28.0-32.0); MEAN CORPUSCULAR HGB CONC 34.3 g/dL (32.0-36.0); MEAN CORPUSCULAR VOLUME 90.8 fL (83.0-99.0); MEAN PLATELET VOLUME 8.9 fL (9.4-12.4); MONOCYTES ABSOLUTE AUTO 0.64 K/uL (0.00-0.80); MONOCYTES PERCENT AUTO 10.6 % (0.0-8.0); NEUTROPHILS ABSOLUTE AUTO 3.06 K/uL (1.80-7.70); NEUTROPHILS PERCENT AUTO 50.9 % (41.0-71.0); PLATELET COUNT,PLT 238 K/uL (150-400); RED BLOOD CELL COUNT 3.82 M/uL (4.52-5.90); WHITE BLOOD CELL COUNT,WBC 6.01 K/uL (3.9-11.3)
[2023-07-24 07:01] LABS: CALCIUM 8.4 mg/dL (8.5-10.1); CARBON DIOXIDE,CO2 26.4 mmol/L (21.0-32.0); EST CRCL DRUG DOSING (CG) 70.97 mL/min; POTASSIUM,K 3.4 mmol/L (3.5-5.1)
[2023-07-24] MEDS ORDERED: Potassium Chloride 20 MEQ Tab.ER PO ONE (07:15)
[2023-07-24] MEDS: Enoxaparin 40 MG/0.4 ML Syringe SUBCUT SCH (08:23)
[2023-07-24] MEDS: Lisinopril 5 MG Tab PO SCH (08:24)
[2023-07-24] MEDS: atorvaSTATin 40 MG Tab PO SCH (08:25)
[2023-07-24] MEDS: Multivitamin Tab PO SCH (08:25)
[2023-07-24] MEDS: Fish Oil/Omega-3 Fatty Acids 1 Gm Cap PO SCH (08:25)
[2023-07-24] MEDS: Clopidogrel 75 MG Tab PO SCH (08:26)
[2023-07-24] MEDS: Ezetimibe 10 MG Tab PO SCH (08:26)
[2023-07-24 11:59] VITALS: BP 143/95; PULSE 58
== END 2023-07-24 12:21 | disposition home or self-care (01) | DRG 514 ==
LOC: MW.SDS 10:48 → MW.MS 15:46 → MW.SDS 16:26 → MW.MS 16:27
PROVIDERS: ADMIT Internal Medicine; ATTEND Internal Medicine
PROC: 0L970ZZ Drainage of Right Hand Tendon, Open Approach (ICD-10-PCS; principal; 2023-07-21 13:45)
DX: M65.841 Other synovitis and tenosynovitis, right hand (principal); M65.041 Abscess of tendon sheath, right hand; I10 Essential (primary) hypertension; I25.10 Atherosclerotic heart disease of native coronary artery without angina pectoris; E78.00 Pure hypercholesterolemia, unspecified; E66.9 Obesity, unspecified; M19.90 Unspecified osteoarthritis, unspecified site; Z96.659 Presence of unspecified artificial knee joint; Z87.442 Personal history of urinary calculi; Z68.32 Body mass index [BMI] 32.0-32.9, adult; Z88.8 Allergy status to other drugs, medicaments and biological substances; Z87.891 Personal history of nicotine dependence; Z95.5 Presence of coronary angioplasty implant and graft; Z98.890 Other specified postprocedural states; Z79.02 Long term (current) use of antithrombotics/antiplatelets; Z79.899 Other long term (current) drug therapy
CPT/HCPCS: 01810; 36415; 80048; 80202; 82947; 83605; 83735; 85025; 85652; 86140; 87070; 87075; 87077; 87147; 87186; 87205; 99222; 99231; 99239; A9270-GY; J0131; J0665; J1170; J1650; J2543; J2704; J3010; J3370; J3490; J7030; J7050; J7120

== ENCOUNTER 2023-08-20 05:23 | Observation (INO) | payer MEDICARE, OTHER ==
[2023-08-20] MEDS ORDERED: Sodium Chloride 0.9% 2.5 ML Syringe FLUSH PRN ×2 (05:34→11:19)
[2023-08-20] MEDS ORDERED: Ondansetron 4 MG/2 ML SDV IVPUSH ONE (05:34)
[2023-08-20] MEDS ORDERED: Sodium Chloride 0.9% 10 ML Syringe FLUSH PRN ×2 (05:34→11:19)
[2023-08-20] MEDS ORDERED: Sodium Chloride 0.9% 1,000 ML IV ONE (05:34)
[2023-08-20] MEDS ORDERED: Pantoprazole 40 MG in Sodium Chloride 0.9% 10 ML IVPUSH ONE (05:36)
[2023-08-20 05:47] LABS: BASOPHILS ABSOLUTE AUTO 0.03 K/uL (0.00-0.20); BASOPHILS PERCENT AUTO 0.3 % (0.0-1.0); EOSINOPHILS ABSOLUTE AUTO 0.35 K/uL (0.00-0.45); HEMATOCRIT 31.6 % (42.0-52.0); HEMOGLOBIN 10.3 g/dL (14.0-18.0); IMMATURE GRAN ABSOLUTE AUTO 0.04 K/uL (0.00-0.05); IMMATURE GRAN PERCENT AUTO 0.5 % (0.0-0.4); LYMPHOCYTES ABSOLUTE AUTO 2.78 K/uL (1.00-4.80); LYMPHOCYTES PERCENT AUTO 31.4 % (24.0-44.0); MEAN CORPUSCULAR HGB CONC 32.6 g/dL (32.0-36.0); MEAN CORPUSCULAR VOLUME 95.2 fL (83.0-99.0); MONOCYTES ABSOLUTE AUTO 0.69 K/uL (0.00-0.80); MONOCYTES PERCENT AUTO 7.8 % (0.0-8.0); NEUTROPHILS ABSOLUTE AUTO 4.97 K/uL (1.80-7.70); PLATELET COUNT,PLT 217 K/uL (150-400); RED BLOOD CELL COUNT 3.32 M/uL (4.52-5.90); WHITE BLOOD CELL COUNT,WBC 8.86 K/uL (3.9-11.3)
[2023-08-20 05:57] LABS: INR 1.07 (0.86-1.11); PTT,PARTIAL THROMBOPLSTIN TIME 20.9 SEC (23.9-30.7)
[2023-08-20 06:20] LABS: A/G RATIO 1.1 (0.9-1.6); ALANINE AMINOTRANSFERASE,ALT 45 IU/L (14-63); ALBUMIN 2.9 g/dL (3.4-5.0); ALKALINE PHOSPHATASE 68 U/L (46-116); ASPARTATE AMNIOTRANSFERASE,AST 22 IU/L (15-37); BILIRUBIN TOTAL 0.4 mg/dL (0.2-1.0); BLOOD UREA NITROGEN,BUN 45 mg/dL (7.0-18.0); CALCIUM 8.2 mg/dL (8.5-10.1); CARBON DIOXIDE,CO2 28.9 mmol/L (21.0-32.0); CHLORIDE,CL 105 mmol/L (98-107); CREATININE 1.2 mg/dL (0.8-1.3); EST CRCL DRUG DOSING (CG) 59.14 mL/min; GLUCOSE RANDOM 151 mg/dL (74-106); MAGNESIUM 1.9 mg/dL (1.8-2.4); POTASSIUM,K 4.1 mmol/L (3.5-5.1); PROTEIN TOTAL,TP 5.6 g/dL (6.4-8.2); SODIUM,NA 141 mmol/L (136-148)
[2023-08-20 06:21] LABS: ESTIMATED GFR 65 mL/min (>60); ETHANOL BLOOD MEDICAL < 3.0 mg/dL
[2023-08-20 09:56] LABS: APPEARANCE,URINE CLEAR; BILIRUBIN,URINE NEGATIVE (NEGATIVE); COLOR,URINE YELLOW; GLUCOSE,URINE NEGATIVE (NEGATIVE); KETONES,URINE TRACE mg/dL (NEGATIVE); LEUKOCYTE ESTERASE,URINE NEGATIVE (NEGATIVE); NITRITE,URINE NEGATIVE (NEGATIVE); OCCULT BLOOD,URINE NEGATIVE (NEGATIVE); PROTEIN,URINE NEGATIVE (NEGATIVE); UROBILINOGEN,URINE 0.2 EU/dL (<2.0)
[2023-08-20] MEDS ORDERED: Albuterol/Ipratropium 3.0-0.5 MG/3 ML Neb Soln NEB PRN (11:19)
[2023-08-20] MEDS ORDERED: Polyethylene Glycol 3350 Powder 17 GM Packet PO PRN (11:19)
[2023-08-20] MEDS ORDERED: Acetaminophen 325 MG Tab PO PRN (11:19)
[2023-08-20] MEDS ORDERED: Sodium Chloride 0.9% 20 ML SDV IV PRN (11:19)
[2023-08-20] MEDS ORDERED: Ondansetron 4 MG/2 ML SDV IVPUSH PRN (11:19)
[2023-08-20] MEDS ORDERED: Pantoprazole 40 MG in Sodium Chloride 0.9% 10 ML IVPUSH SCH (11:30)
[2023-08-20] MEDS ORDERED: Sodium Chloride 0.9% 1,000 ML IV SCH (11:30)
[2023-08-20 12:13] LABS: BASOPHILS ABSOLUTE AUTO 0.02 K/uL (0.00-0.20); BASOPHILS PERCENT AUTO 0.3 % (0.0-1.0); EOSINOPHILS ABSOLUTE AUTO 0.09 K/uL (0.00-0.45); EOSINOPHILS PERCENT AUTO 1.2 % (0.0-6.0); HEMATOCRIT 29.4 % (42.0-52.0); HEMOGLOBIN 9.9 g/dL (14.0-18.0); IMMATURE GRAN ABSOLUTE AUTO 0.03 K/uL (0.00-0.05); IMMATURE GRAN PERCENT AUTO 0.4 % (0.0-0.4); LYMPHOCYTES ABSOLUTE AUTO 1.55 K/uL (1.00-4.80); LYMPHOCYTES PERCENT AUTO 20.9 % (24.0-44.0); MEAN CORPUSCULAR HEMOGLOBIN 31.7 pg (28.0-32.0); MEAN CORPUSCULAR HGB CONC 33.7 g/dL (32.0-36.0); MEAN CORPUSCULAR VOLUME 94.2 fL (83.0-99.0); MEAN PLATELET VOLUME 8.8 fL (9.4-12.4); MONOCYTES ABSOLUTE AUTO 0.43 K/uL (0.00-0.80); MONOCYTES PERCENT AUTO 5.8 % (0.0-8.0); NEUTROPHILS PERCENT AUTO 71.4 % (41.0-71.0); PLATELET COUNT,PLT 190 K/uL (150-400); RED BLOOD CELL COUNT 3.12 M/uL (4.52-5.90); WHITE BLOOD CELL COUNT,WBC 7.42 K/uL (3.9-11.3)
[2023-08-20] MEDS: atorvaSTATin 40 MG Tab PO SCH (13:52)
[2023-08-20] MEDS: Celecoxib 100 MG Cap PO SCH ×2 (13:53→20:13)
[2023-08-20] MEDS: Clopidogrel 75 MG Tab PO SCH (13:54)
[2023-08-20] MEDS: Sulfamethoxazole/Trimethoprim 800-160 MG Tab PO SCH ×2 (13:56→20:13)
[2023-08-20] MEDS: Lisinopril 5 MG Tab PO SCH (13:56)
[2023-08-20] MEDS ORDERED: Lactated Ringers 1,000 ML IV SCH (19:30)
[2023-08-21] MEDS ORDERED: Lactated Ringers 1,000 ML IV ONE (03:16)
[2023-08-21] MEDS ORDERED: Pantoprazole 40 MG in Sodium Chloride 0.9% 10 ML IVPUSH SCH (06:00)
[2023-08-21 06:29] LABS: BASOPHILS ABSOLUTE AUTO 0.03 K/uL (0.00-0.20); BASOPHILS PERCENT AUTO 0.5 % (0.0-1.0); EOSINOPHILS ABSOLUTE AUTO 0.25 K/uL (0.00-0.45); HEMATOCRIT 26.5 % (42.0-52.0); HEMOGLOBIN 8.9 g/dL (14.0-18.0); IMMATURE GRAN ABSOLUTE AUTO 0.01 K/uL (0.00-0.05); IMMATURE GRAN PERCENT AUTO 0.2 % (0.0-0.4); LYMPHOCYTES ABSOLUTE AUTO 2.02 K/uL (1.00-4.80); LYMPHOCYTES PERCENT AUTO 32.4 % (24.0-44.0); MEAN CORPUSCULAR HEMOGLOBIN 31.6 pg (28.0-32.0); MEAN CORPUSCULAR HGB CONC 33.6 g/dL (32.0-36.0); MONOCYTES ABSOLUTE AUTO 0.47 K/uL (0.00-0.80); MONOCYTES PERCENT AUTO 7.5 % (0.0-8.0); NEUTROPHILS ABSOLUTE AUTO 3.45 K/uL (1.80-7.70); NEUTROPHILS PERCENT AUTO 55.4 % (41.0-71.0); PLATELET COUNT,PLT 189 K/uL (150-400); RED BLOOD CELL COUNT 2.82 M/uL (4.52-5.90); WHITE BLOOD CELL COUNT,WBC 6.23 K/uL (3.9-11.3)
[2023-08-21 06:45] LABS: CALCIUM 8.1 mg/dL (8.5-10.1); CARBON DIOXIDE,CO2 26.3 mmol/L (21.0-32.0); EST CRCL DRUG DOSING (CG) 70.97 mL/min; MAGNESIUM 1.9 mg/dL (1.8-2.4); PHOSPHORUS 3.4 mg/dL (2.6-4.7); POTASSIUM,K 4.1 mmol/L (3.5-5.1)
[2023-08-21] MEDS: atorvaSTATin 40 MG Tab PO SCH (09:38)
[2023-08-21] MEDS: Sulfamethoxazole/Trimethoprim 800-160 MG Tab PO SCH (09:39)
[2023-08-21] MEDS: Lisinopril 5 MG Tab PO SCH (09:39)
[2023-08-21] MEDS: Celecoxib 100 MG Cap PO SCH (09:39)
[2023-08-21] MEDS: Clopidogrel 75 MG Tab PO SCH (09:51)
[2023-08-21] MEDS ORDERED: Sodium Chloride 0.9% 500 ML IV ONE (10:03)
[2023-08-21 13:58] VITALS: BP 95/50; PULSE 61
== END 2023-08-21 13:49 | disposition home or self-care (01) ==
LOC: MW.ED 05:23 → MW.MS 07:19
PROVIDERS: ADMIT Family Medicine; ATTEND Family Medicine
DX: R55 Syncope and collapse (principal); E86.0 Dehydration; I10 Essential (primary) hypertension; E78.00 Pure hypercholesterolemia, unspecified; I25.10 Atherosclerotic heart disease of native coronary artery without angina pectoris; E66.9 Obesity, unspecified; Z68.31 Body mass index [BMI] 31.0-31.9, adult; Z95.5 Presence of coronary angioplasty implant and graft; Z79.02 Long term (current) use of antithrombotics/antiplatelets; Z79.899 Other long term (current) drug therapy; Z88.8 Allergy status to other drugs, medicaments and biological substances
CPT/HCPCS: 36415; 70450; 71045; 72125; 80048; 80053; 80307; 81003; 83735; 84100; 84484; 85025; 85610; 85730; 86850; 86900; 86901; 93005; 93246; 93306; A9270; C9113; J2405; J3490; J7030; J7120